=== PATIENT | female | born 1995 | race Caucasian/White ===

== ENCOUNTER 2020-11-25 10:52 | Emergency (ER) | payer OTHER ==
[~2020-11-25] VITALS: Ht 154.9 cm; Wt 82.9 kg
[2020-11-25] MEDS ORDERED: MUPI2OI EXT (11:04)
[2020-11-25] MEDS ORDERED: CEPH500T PO (11:04)
[2020-11-25] MEDS ORDERED: IBUPROFEN 600MG TAB PO ONE (12:40)
[2020-11-25 13:03] VITALS: BP 120/70
--- NOTE | 2020-11-26 09:31 | ED PDOC ---
Post-Departure Follow-Up Called patient to check to see how she was doing. Patient stated that the pain in her right groin was improved. Stressed the importance of her taking all of her antibiotics and the signs/symptoms to watch for that would require her to seek further treatment. ROMA EDWARDS PA-C Nov 26, 2020 09:31
== END 2020-11-25 13:06 | disposition home or self-care (01) ==
LOC: M ED 10:52
DX: L02.214 Cutaneous abscess of groin (principal)

== ENCOUNTER 2020-12-26 19:37 | Emergency (ER) | payer OTHER ==
[~2020-12-26] VITALS: Ht 154.9 cm; Wt 83.7 kg
[~2020-12-26 19:37] MED LIST: CEPH500T PO; MUPI2OI EXT
--- NOTE | 2020-12-26 22:37 | REPVR ---
PROCEDURE INFORMATION: Exam: US Duplex Left Upper Extremity Veins, Limited Exam date and time: 12/26/2020 10:26 PM Age: 25 years old Clinical indication: Arm, upper; Left; Prior surgery; Surgery date: 3-7 days post-operative; Surgery type: Patient had nexplanone removed from lt arm now using patch, pain in area of patch; Additional info: Left arm pain TECHNIQUE: Imaging protocol: Real-time Duplex ultrasound of the Left Upper Extremity with 2-D mueller scale, color Doppler flow and spectral waveform analysis with image documentation. Limited exam focused on the left upper extremity veins. COMPARISON: No relevant prior studies available. FINDINGS: Left deep veins: Internal jugular, subclavian, axillary and brachial veins patent without thrombus. Normal compressibility, augmentation response and/or Doppler waveforms. Left superficial veins: Visualized cephalic and basilic veins patent without thrombus. Soft tissues: Unremarkable. IMPRESSION: No sonographic evidence of deep vein thrombosis. Electronically signed by: Homero Smallwood On 12/26/2020 22:36:55 PM
[2020-12-26 23:30] VITALS: BP 127/69
== END 2020-12-26 23:33 | disposition home or self-care (01) ==
LOC: M ED 19:37
DX: R53.83 Other fatigue (principal); J06.9 Acute upper respiratory infection, unspecified; M79.602 Pain in left arm; Z86.16 Personal history of COVID-19

== ENCOUNTER 2022-03-27 04:41 | Inpatient (IN) | payer OTHER ==
[~2022-03-27] VITALS: Ht 154.9 cm; Wt 87.1 kg
[2022-03-27] VITALS (18 sets, daily range): BP systolic 102–172; BP diastolic 52–93
[2022-03-27] MEDS ORDERED: PRENTAB9 PO (04:54)
[2022-03-27] MEDS ORDERED: HOME MED LIST COMPLETE! XX SCH (04:55)
[2022-03-27] MEDS ORDERED: LACTATED RINGER'S 1000 ML IV STA (07:14)
[2022-03-27] MEDS ORDERED: LIDOCAINE 1% MDV 20ML VIAL INFIL PRN (07:15)
[2022-03-27] MEDS ORDERED: TRANEXAMIC ACID INJection 1,000 MG in NS 100 ML IV PRN (07:15)
[2022-03-27] MEDS ORDERED: CARBOPROST TROMETHAMINE 250 MCG/ML AMP IM PRN (07:15)
[2022-03-27] MEDS ORDERED: OXYTOCIN INJ 10 UNITS/ML VIAL (J2590) IV PRN (07:15)
[2022-03-27] MEDS ORDERED: METHYLERGONOVINE MALEATE 0.2 MG/ML VIAL (J2210) IM PRN ×2 (07:15→14:30)
[2022-03-27] MEDS ORDERED: OXYTOCIN INJ 10 UNITS/ML VIAL (J2590) IM PRN (07:15)
[2022-03-27] MEDS ORDERED: OXYTOCIN DRIP 30 UNITS in IV 1 EA IV PRN ×4 (07:15)
[2022-03-27 07:58] LABS: HEMATOCRIT 31.7 % (36.0-47.0); HEMOGLOBIN 10.7 g/dl (12.0-15.5); MEAN CORPUSCULAR HEMOGLOBIN 28.5 pg (27.0-33.0); MEAN CORPUSCULAR HGB CONC 33.8 g/dl (32.0-36.5); MEAN CORPUSCULAR VOLUME 84.3 fl (80.0-96.0); PLATELET COUNT, AUTOMATED 268 10^3/uL (150-450); RED BLOOD COUNT 3.76 10^6/uL (4.00-5.40); WHITE BLOOD COUNT 9.5 10^3/uL (4.0-10.0)
[2022-03-27] MEDS ORDERED: FENTANYL 2MCG/ML ROPIVACAINE 0.2% IN 0.9% NACL 100ML IVBAG As Ordered ONE (08:47)
[2022-03-27] MEDS ORDERED: EPIDURAL/PCA KEYS XX PRN (08:50)
[2022-03-27] MEDS ORDERED: LR 500 ML IV PRN (08:50)
[2022-03-27] MEDS ORDERED: NALOXONE INJ 0.4MG/1ML VIAL (J2310 PER 1MG) IV PRN (08:50)
[2022-03-27] MEDS ORDERED: ONDANSETRON 4MG 2ML VIAL IV PRN (08:50)
[2022-03-27] MEDS ORDERED: FENTANYL/ROPIVACAINE/NACL BAG 100 ML EPIDURAL SCH (08:50)
[2022-03-27] MEDS ORDERED: ePHEDrine SULFATE 25 MG/5 ML(5MG/ML) SYRINGE IVP PRN (08:50)
[2022-03-27] MEDS ORDERED: diphenhydrAMINE 50MG/ML VIAL (J1200) IV PRN (08:50)
[2022-03-27] MEDS: LR 1,000 ML IV SCH ×2 (08:59→15:15)
[2022-03-27] MEDS ORDERED: OXYTOCIN 30 UNITS IN 0.9% NaCl 500ML IV BAG (J2590) As Ordered ONE (12:55)
[2022-03-27 14:12] LABS: CORD GAS ABE A -3.1; CORD GAS HCO3 A 22.6 MEQ/L; CORD GAS O2 SAT A 57.3 %; CORD GAS PCO2 A 42.6 mmHg; CORD GAS PH A 7.342 UNITS; CORD GAS PO2 A 24.3 mmHg; CORD GAS SBC A 20.9 MEQ/L; CORD GAS TCO2 A 23.9 MEQ/L
[2022-03-27 14:14] LABS: CORD GAS ABE V -3.6; CORD GAS O2 SAT V 87.8 %; CORD GAS PCO2 V 32.7 mmHg; CORD GAS PH V 7.405 UNITS; CORD GAS PO2 V 40.4 mmHg; CORD GAS SBC V 21.3 MEQ/L
[2022-03-27] MEDS ORDERED: ANUSOL HC CREAM 30GM TOP PRN (14:30)
[2022-03-27] MEDS ORDERED: MOM 30ML SUSPENSION UDC PO PRN (14:30)
[2022-03-27] MEDS ORDERED: DOCUSATE SODIUM 100MG CAPSULE PO PRN (14:30)
[2022-03-27] MEDS ORDERED: METHYLERGONOVINE MALEATE 0.2 MG TAB PO PRN (14:30)
[2022-03-27] MEDS ORDERED: OXYTOCIN DRIP 30 UNITS in IV 1 EA IV ONE (14:30)
[2022-03-27] MEDS ORDERED: ACETAMINOPHEN 500 MG TAB PO PRN (14:30)
[2022-03-27] MEDS ORDERED: OXYTOCIN DRIP 30 UNITS in IV 1 EA IV SCH (14:30)
[2022-03-27] MEDS ORDERED: LR 1,000 ML IV SCH (14:30)
[2022-03-27] MEDS ORDERED: DIBUCAINE 1% OINTMENT 30GM TOP PRN (14:30)
[2022-03-27] MEDS ORDERED: OXYTOCIN INJ 10 UNITS/ML VIAL (J2590) IV ONE (14:30)
[2022-03-27] MEDS ORDERED: ACETAMINOPHEN TAB 650MG DOSE (2X325MG) PO PRN (14:30)
[2022-03-27] MEDS ORDERED: RHOGAM 300 MCG (1500 IU) INJ (J2790) IM SCH (14:30)
[2022-03-27] MEDS: IBUPROFEN 600MG TAB PO PRN (14:45)
[2022-03-28 05:32] VITALS: BP 103/55
[2022-03-28] MEDS: IBUPROFEN 600MG TAB PO PRN ×2 (06:31→20:25)
[2022-03-28 07:30] LABS: HEMATOCRIT 27.7 % (36.0-47.0); HEMOGLOBIN 9.2 g/dl (12.0-15.5); MEAN CORPUSCULAR HEMOGLOBIN 28.4 pg (27.0-33.0); MEAN CORPUSCULAR HGB CONC 33.2 g/dl (32.0-36.5); MEAN CORPUSCULAR VOLUME 85.5 fl (80.0-96.0); PLATELET COUNT, AUTOMATED 189 10^3/uL (150-450); RED BLOOD COUNT 3.24 10^6/uL (4.00-5.40); WHITE BLOOD COUNT 8.9 10^3/uL (4.0-10.0)
[2022-03-28] MEDS: PRENATAL VITAMINS CHEWABLE TABLET PO SCH (10:02)
[2022-03-28 18:00] VITALS: BP 106/58
[2022-03-29 06:00] VITALS: BP 111/57
[2022-03-29] MEDS: PRENATAL VITAMINS CHEWABLE TABLET PO SCH (07:28)
[2022-03-29] MEDS ORDERED: PRENCHW PO (07:54)
[2022-03-29] MEDS ORDERED: COLA100C5 PO (07:54)
[2022-03-29] MEDS ORDERED: IBUP-1022 PO (07:54)
[2022-03-29] MEDS ORDERED: MEASLES,MUMPS,RUBELLA VACCINE INJ (MMR-II) (90707) SC.IMMUN ONE (09:00)
== END 2022-03-29 11:58 | disposition home or self-care (01) | DRG 807 ==
LOC: M LDO 04:41 → M LDI 07:25 → M OBS 15:37
PROVIDERS: ADMIT Obstetrics & Gynecology; ATTEND Obstetrics & Gynecology
PROC: 10E0XZZ Delivery of Products of Conception, External Approach (ICD-10-PCS; principal; 2022-03-27)
PROC: 10907ZC Drainage of Amniotic Fluid, Therapeutic from Products of Conception, Via Natural or Artificial Opening (ICD-10-PCS; 2022-03-27)
DX: O69.81X0 Labor and delivery complicated by cord around neck, without compression, not applicable or unspecified (principal); Z37.0 Single live birth; Z3A.38 38 weeks gestation of pregnancy; O77.0 Labor and delivery complicated by meconium in amniotic fluid